=== PATIENT | male | born 1975 | race Caucasian/White ===

== ENCOUNTER → 2016-12-26 | Outpatient (CLI) | payer OTHER ==
--- NOTE | 2016-12-26 18:08 | US ---
EXAMINATION TYPE: US venous doppler duplex UE RT DATE OF EXAM: 12/26/2016 5:49 PM COMPARISON: NONE CLINICAL HISTORY: RUE, Pain in R Arm M79.621. SIDE PERFORMED: TECHNOLOGIST IMPRESSION: Right Arm: Negative for DVT Positive for thrombus in superficial cephalic vein. IMPRESSION: No evidence of deep venous thrombosis in the right arm. There is evidence of superficial vein thrombo sis involving the cephalic vein.
== END | disposition home or self-care (01) ==
LOC: RADUSWWP 17:05
PROVIDERS: ATTEND Family Medicine
DX: I82.611 Acute embolism and thrombosis of superficial veins of right upper extremity (principal)

== ENCOUNTER → 2017-02-08 | Outpatient (CLI) | payer OTHER ==
--- NOTE | 2017-02-11 14:52 | XR ---
Abdomen HISTORY: Rib Pain Frontal view of the abdomen on 2 images There is a mild spinal curvature. Lung bases are clear. There is no evidence of obstruction or pneumo peritoneum. Bone mineralization is maintained. IMPRESSION: No acute abnormalities evident
== END | disposition home or self-care (01) ==
LOC: RADXRYALE 15:03
PROVIDERS: ATTEND Physician Assistant Medical
DX: R07.81 Pleurodynia (principal)
CPT/HCPCS: 74000

== ENCOUNTER → 2021-08-01 | Outpatient (CLI) | payer BC ==
--- NOTE | 2021-08-01 10:31 | XR ---
EXAMINATION TYPE: XR thoracic spine complete DATE OF EXAM: 08/01/2021 COMPARISON: NONE HISTORY: Pain TECHNIQUE: 3 views submitted FINDINGS: Alignment is anatomic. There is no compression deformities. Vertebral body height and disc interspa dea are maintained. Curvature of the spine noted. Multilevel hypertrophic and degenerative changes o f the spine. IMPRESSION: 1. Multilevel hypertrophic and degenerative change of the spine.
== END | disposition home or self-care (01) ==
LOC: RADXRYALE 10:01
PROVIDERS: ATTEND Physician Assistant Medical
DX: M51.34 Other intervertebral disc degeneration, thoracic region (principal)
CPT/HCPCS: 72072

== ENCOUNTER → 2021-09-08 | Outpatient (CLI) | payer BC ==
--- NOTE | 2021-09-08 15:34 | XR ---
EXAMINATION TYPE: XR cervical spine comp DATE OF EXAM: 09/08/2021 COMPARISON: NONE HISTORY: Pain TECHNIQUE: Four views are submitted. FINDINGS: The odontoid is intact. There are no compression deformities. The prevertebral soft tissue structur es are within normal limits. Degenerative disc disease with posterior spondylosis C5-C6. Mild degene rative disc disease C6-C7. IMPRESSION: 1. Degenerative disc disease lower cervical spine. Consider follow-up MRI..
== END | disposition home or self-care (01) ==
LOC: RADXRYALE 15:06
PROVIDERS: ATTEND Physician Assistant Medical
DX: M50.323 Other cervical disc degeneration at C6-C7 level (principal)
CPT/HCPCS: 72050

== ENCOUNTER → 2022-01-02 | Outpatient (CLI) | payer BC ==
--- NOTE | 2022-01-03 10:09 | MR ---
EXAMINATION TYPE: MR cervical spine wo con DATE OF EXAM: 01/02/2022 COMPARISON: MR cervical spine 09/27/2015, plain film 09/08/2021 HISTORY: Shooting pain in neck and back, history malignant neoplasm of sigmoid colon TECHNIQUE: Multiplanar, multisequence images of the cervical spine were acquired without contrast. C2-C3: No evidence for degenerative disc disease. No disc bulge/herniation or protrusion. No Canal stenosis. Foramina are patent bilaterally. C3-C4: No evidence for degenerative disc disease. No disc bulge/herniation or protrusion. No Canal stenosis. Foramina are patent bilaterally. C4-C5: No evidence for degenerative disc disease. No disc bulge/herniation or protrusion. No Canal stenosis. Foramina are showing some mild encroachment due to uncovertebral joint hypertrophy. C5-C6: There is uncovertebral joint hypertrophy and some bilateral foraminal encroachment. Posterior extension endplate disc complex causes mild anterior mass effect on the thecal sac. C6-C7: There is a minimal posterior disc bulge causing slight anterior mass effect on the thecal sac C7-T1: No evidence for degenerative disc disease. No disc bulge/herniation or protrusion. No Canal stenosis. Foramina are patent bilaterally. Cervical segments are intact. There is normal alignment. Cervical spinal cord is of normal signal. Craniovertebral junction relationships are within normal limits. Cervical vertebral bodies show sta ble height, alignment, there is some spondylosis with endplate discogenic marrow signal change at C5- 6, associated loss of disc height signal. There is no significant spinal stenosis. Spinal curvature n oted in the thoracic spine. IMPRESSION: Degenerative disc disease and foraminal encroachment, correlate for possible C6 radiculopathy.
== END | disposition home or self-care (01) ==
LOC: RADMRIMAIN 12:03
PROVIDERS: ATTEND Physician Assistant Medical
DX: M50.30 Other cervical disc degeneration, unspecified cervical region (principal)
CPT/HCPCS: 72141

== ENCOUNTER → 2022-02-14 | Outpatient (CLI) | payer BC ==
--- NOTE | 2022-02-14 10:55 | MR ---
EXAMINATION TYPE: MR thoracic spine wo con DATE OF EXAM: 02/14/2022 COMPARISON: X-ray dated 08/01/2021 INDICATION: NO prior MR, prior x-ray on synapse, upper back pain TECHNIQUE: Standard multiplanar, multisequence MRI of the thoracic spine without contrast. FINDINGS: Mild levoscoliosis of the upper thoracic spine with apex at T4-5 level, possibly positional. Preserve d dorsal kyphosis. No significant anterolisthesis or retrolisthesis. No definite vertebral body colla pse. Focal marrow edema signal is seen at that the inferior endplate of T8. Fatty marrow conversion is seen at the corners of L1, T12 and T9 vertebral bodies as well as T3-4 lev el. Slightly degenerated T8-9 disc. Normal caliber and signal of the thoracic spinal cord without sig nificant signal abnormality, mass lesion, cord expansion or syrinx formation. At C3-4 level: Small right paracentral and right foraminal focal disc protrusion, causing no signific ant central spinal canal stenosis or significant neuroforaminal stenosis. At T6-7 level: Small left paracentral focal disc protrusion, causing no significant central spinal ca nal stenosis or neuroforaminal stenosis. At T7-8 level: Minimal left paracentral focal disc protrusion, causing no significant central spinal canal stenosis or neuroforaminal stenosis. No other significant thoracic disc disease, central spinal canal stenosis or neuroforaminal stenosis. Multilevel facet osteoarthropathy is noted. No paraspinal lesion. IMPRESSION: Mild degenerative changes of the thoracic spine with no significant central spinal canal stenosis or neuroforaminal stenosis. No significant thoracic spinal cord abnormality. Levoscoliosis of the upper thoracic spine as describ ed above.
== END | disposition home or self-care (01) ==
LOC: RADMRIMAIN 09:31
PROVIDERS: ATTEND Orthopaedic Surgery Orthopaedic Surgery of the Spine
DX: M47.814 Spondylosis without myelopathy or radiculopathy, thoracic region (principal); M41.84 Other forms of scoliosis, thoracic region
CPT/HCPCS: 72146